=== PATIENT | female | born 1980 | race Caucasian/White ===

== ENCOUNTER 2016-03-31 22:34 | Emergency (ER) | payer OTHER ==
[2016-04-01] MEDS ORDERED: MORPHINE SULFATE 4 MG/ML SYRINGE ONE ×2 (00:05→01:42)
[2016-04-01 01:12] LABS: ABSOLUTE NEUTROPHIL COUNT 3.6 K/mm3 (1.8-7.7); BASO % 0.5 % (0.2-1.0); EOS # 0.2 (0.0-0.5); EOS % 3.1 % (0.9-2.9); HEMATOCRIT 40.8 % (37.0-47.0); HEMOGLOBIN 13.4 gm/l (12.0-16.0); IMM NEUT% 0.3 % (0-1); LYMPH # 3.1 (1.0-4.8); LYMPH % 41.6 % (15-45); MEAN CELL VOLUME 94.2 fl (81.0-99.0); MEAN CORPUSCULAR HEMOGLOBIN 30.9 pg (27.0-31.0); MEAN CORPUSCULAR HGB CONC 32.8 g/dl (33.0-37.0); MEAN PLATELET VOLUME 9.9 fl (7.4-10.4); MONO # 0.4 (0.0-0.8); NEUT % 48.5 % (43-75); PLATELET COUNT 341 K/mm3 (130-400)
[2016-04-01 01:22] LABS: ALB/GLOB RATIO 1.6 (>1.0); ALBUMIN 4.3 gm/dL (3.5-5.7); CALCIUM 9.2 mg/dL (8.6-10.3)
--- NOTE | 2016-04-01 08:02 | CT ---
Exam: CT abdomen and pelvis without contrast COMPARISON: None INDICATION: Abdominal pain. TECHNIQUE: CT examination of the abdomen and pelvis was obtained without contrast using a renal stone protocol. FINDINGS: No calculus is identified within either kidney, ureter or bladder. There is no hydronephrosis or perinephric stranding. Retroverted uterus is unremarkable. Tubal ligation clips are appreciated. There is no adnexal mass. No pelvic lymphadenopathy or fluid collection. There is mild colonic diverticulosis without evidence of diverticulitis. The appendix is not visualized although there are no secondary findings of acute appendicitis. There is no bowel obstruction, free air or free intraperitoneal fluid. Post cholecystectomy. The liver, spleen, pancreas and adrenal glands are unremarkable on this noncontrast exam. Atheromatous but nonaneurysmal abdominal aorta. There is mild dependent atelectasis within the lung bases. There is a 7 mm nodule within the anterior right lower lobe on axial image 6 of 40 on the lung windows. There is a 5 mm nodule of the right middle lobe on image 2 of 40, as well as an additional micronodule within the right middle lobe on image 8 of 40 on the lung windows. No worrisome lytic or blastic osseous lesion is identified. IMPRESSION: 1. Noncalcified nodules within the right lung base measuring up to 7 mm which are of uncertain chronicity given lack of comparisons. These should be followed, particularly if patient has a history of smoking. A nonemergent CT examination of the chest is recommended to evaluate for additional nodules which will determine follow-up interval. 2. No acute findings identified to explain abdominal pain. 3. Post cholecystectomy and tubal ligation. Preliminary report transmitted to the emergency department from [facility] at 0112 hours 04/01/2016.
== END 2016-04-01 02:05 | disposition home or self-care (01) ==
LOC: ED 22:34
DX: R10.31 Right lower quadrant pain (principal); F17.210 Nicotine dependence, cigarettes, uncomplicated